=== PATIENT | male | born 1990 | race American Indian/Alaskan Native ===

== ENCOUNTER 2018-03-21 06:48 | Emergency (ER) | payer OTHER ==
[2018-03-21 07:22] VITALS: BP 125/68
--- NOTE | 2018-03-21 08:49 | Emergency Department Report ---
ED Rash HPI - HPI Chief Complaint: Skin Rash Stated Complaint: RASH Time Seen by Provider: 03/21/18 08:23 Duration: 4 Days Location: Upper Extremities, Lower Extremities Suspected Cause: Medication Rash Symptoms: Yes Itching (both feet, arms and hands), Yes Peeling (report blisters and pus coming from the bottom of his feet), Yes Blistering (both feet) , No Facial Swelling, No Tongue/Oral Swelling, No Breathing Difficulties, No Choking Sensation, No Wheezing/Dyspnea, No Fever, No Lightheaded, No Malaise, No Myalgias Severity: severe (10/10) Other History: Patient reports that he took oxycodone pill that he had at home on Tuesday and he broke out into a rash. He said he also has some blister and swelling with pain to both his feet. The looks like he has some pus coming out of it. Denies any numbness or tingling. Denies any injury. Reports itching to his toes and feet. Denies any fever or chills. Denies any nausea or vomiting. Pain is 10/10 and sore. He said he has been taking Benadryl and cortisone cream [id number] without any relief. Denies any respiratory symptoms to include shortness of breath, cough, difficulty breathing in, swelling of tongue or lips. Positive stridor or wheezing. This started 4 days ago. Rash to upper extremity is different from rash to feet. Pain is worse with walking ED Review of Systems ROS: Stated complaint: RASH Other details as noted in HPI Comment: All other systems reviewed and negative Constitutional: no symptoms reported ENT: denies: ear pain, throat pain, congestion Respiratory: no symptoms reported Cardiovascular: denies: chest pain, palpitations, dyspnea on exertion, syncope, paroxysmal nocturnal dyspnea Gastrointestinal: denies: abdominal pain, nausea, vomiting, diarrhea, constipation Genitourinary: denies: dysuria, hematuria Musculoskeletal: arthralgia. denies: back pain, joint swelling, myalgia Skin: rash, pruritus Neurological: denies: headache, weakness, numbness, paresthesias, abnormal gait , vertigo ED Past Medical Hx - Past Medical History Previous Medical History?: No - Surgical History Past Surgical History?: Yes Additional Surgical History: right hand - Family History Family history: no significant - Social History Smoking Status: Current Every Day Smoker Substance Use Type: Marijuana - Medications Home Medications: Home Medications Medication Instructions Recorded Confirmed Last Taken Type Cephalexin [Keflex] 500 mg PO Q8HR 10 Days #30 cap 03/21/18 Unknown Rx Fluconazole [Diflucan TAB] 150 mg PO QDAY 2 Days #2 tablet 03/21/18 Unknown Rx Ibuprofen [Motrin] 600 mg PO Q8H PRN #12 tablet 03/21/18 Unknown Rx Ketoconazole 2% [Nizoral] 15 gm TP BID 7 Days #1 tube 03/21/18 Unknown Rx diphenhydrAMINE [Benadryl CAP] 50 mg PO Q8HR PRN #12 capsule 03/21/18 Unknown Rx predniSONE [Deltasone] 50 mg PO QDAY 5 Days #5 tab 03/21/18 Unknown Rx Rash Exam - Exam General: Vital signs noted. No distress. Alert and acting appropriately. This is a 27-year-old male well-nourished well-developed in no acute distress. HEENT: No Periorbital Edema, No Conjuctival Injection, No Chemosis, No Perioral Edema, No Tongue Edema, No Uvular Edema, No Compromised Airway, No Drooling Lungs: Yes Good Air Exchange (CTAB), No Wheezes, No Ronchi, No Stridor, No Cough , No Labored Respirations, No Retractions, No Use of Accessory Muscles, No Other Abnormal Lung Sounds Heart: Yes Regular (S1, S2), No Murmur Skin: Yes Maculopapular Rash (both forearm scattered sparsely. No signs of erythema), Yes Tenderness (plantar aspect of both feet with psoriasis scattered blister, mild erythema tender to palpate.), Yes Erythema (plantar aspect of both feet), Yes Other (patient was scaling and moisture between toes and both feet plantar aspect.), No Urticarial Rash, No Morbilliform rash, No Bulla(e), No Excoriations, No Weeping, No Edema, No Encrustations Other: Positive: Abdomen Normal (soft, nontender to palpate in all quadrants no guarding or rebound and normal bowel sounds in all quadrants), Neurologic Normal (clubbing, cyanosis or edema distal pulses in all extremities), Musculoskeletal Normal (+5 strength in all extremities. Patient with full range of motion to all extremities) ED Course Vital Signs 03/21/18 07:19 Temperature 98.5 F Pulse Rate 92 H Respiratory 18 Rate Blood Pressure 125/68 O2 Sat by Pulse 100 Oximetry - Reevaluation(s) Reevaluation #1: 03/21/18 09:08 Patient given Decadron 6 mg by mouth and Motrin 800 mg by mouth in emergency room for pain and allergic reaction. ED Medical Decision Making - Medical Decision Making D course: Patient status post taking oxycodone and states that he is allergic to oxycodone which she took 4 days ago. He was found to have maculopapular rash without any pain or signs of infection to his upper extremity and also tinea pedis to plantar aspect of both feet and between webs of toes. He has what appears to be mild cellulitis which is superimposed on fungal infection to both feet. I discussed diagnosis and treatment plan the patient and I discussed him that he needs to follow-up with primary care physician. Patient does have a primary care physician and he said he goes to the [facility] and I told him that he needs to call today to schedule an appointment for follow-up visit. He was given Deltasone. 60 milligram by mouth and Motrin 800 mg by mouth in emergency room. Discussed diagnosis and treatment plan with him and he voiced understanding. I discussed the patient that he needs to go to the [facility] to call today to schedule an appointment and then he she will refrain from taking oxycodone. He voiced understanding discharge instruction and treatment plan along with diagnosis and discharged home in stable condition with prescription for Motrin, prednisone, Benadryl, Keflex, Diflucan and ketoconazole cream. Critical care attestation.: If time is entered above; I have spent that time in minutes in the direct care of this critically ill patient, excluding procedure time. ED Disposition Clinical Impression: Tinea pedis of both feet, Cellulitis of both feet, Pruritus and related conditions Contact dermatitis Qualifiers: Contact dermatitis type: allergic Contact dermatitis trigger: drugs in contact with skin Qualified Code(s): L23.3 - Allergic contact dermatitis due to drugs in contact with skin Disposition: [id number] TO HOME OR SELFCARE Is pt being admited?: No Does the pt Need Aspirin: No Condition: Stable Instructions: Tinea Pedis (ED), Cellulitis (ED), Itchy Skin (ED), Acute Rash ( ED) Additional Instructions: Please see medication as prescribed Activity areas clean and dry. Take antibiotic for infection to both feet Take Diflucan tablet by mouth on and ketoconazole cream to apply to to include bottom of feet twice daily for 14 days. You have a fungal foot infection which is call at least foot with mild infection , bacterial in nature Soak both feet in Epsom salts twice daily Take prednisone for allergy Take Benadryl for itching and allergy please not drive or operate heavy machinery while taking this medication if your condition worsens, please return to the emergency room or to the [facility] Follow up with Primary care physician at the [facility] in 2 days Prescriptions: Cephalexin [Keflex] 500 mg PO Q8HR 10 Days #30 cap diphenhydrAMINE [Benadryl CAP] 50 mg PO Q8HR PRN #12 capsule PRN Reason: allergic reaction and itching Fluconazole [Diflucan TAB] 150 mg PO QDAY 2 Days #2 tablet Ibuprofen [Motrin] 600 mg PO Q8H PRN #12 tablet PRN Reason: Pain Ketoconazole 2% [Nizoral] 15 gm TP BID 7 Days #1 tube predniSONE [Deltasone] 50 mg PO QDAY 5 Days #5 tab Referrals: PRIMARY CARE [Primary Care Provider] - 03/23/18 [facility] [Outside] - 03/23/18 Forms: Work/School Release Form(ED)
[2018-03-21] MEDS ORDERED: MOTRIN PO ONE (09:00)
[2018-03-21] MEDS ORDERED: DELTASONE PO ONE (09:00)
== END 2018-03-21 09:32 | disposition home or self-care (01) ==
LOC: ED 06:48
DX: B35.3 Tinea pedis (principal); L23.3 Allergic contact dermatitis due to drugs in contact with skin; F17.200 Nicotine dependence, unspecified, uncomplicated
CPT/HCPCS: 99282; J7512